=== PATIENT | female | born 1950 | race American Indian/Alaskan Native ===

== ENCOUNTER 2018-05-28 21:46 | Emergency (ER) | payer BC, MEDICARE ==
[2018-05-28 22:02] VITALS: BP 163/84
--- NOTE | 2018-05-28 22:05 | Emergency Department Report ---
Blank Doc - Documentation Documentation: C/O right ankle pain s/p fall 2 weeks ago. This initial assessment diagnostic orders/clinical plan/treatment (s) is/Are subject change based on patient's health status, clinical progression and re- assessment by fellow clinical providers in the ED. Further treatment and work-up at subsequent clinical providers discretion. Patient/guardians urged not to elope from s their condition may be serious if not clinically assessed and managed. Initial order include:
--- NOTE | 2018-05-28 23:48 | XRay Report ---
FINAL REPORT PROCEDURE: XR ANKLE 2V RT TECHNIQUE: Right ankle radiographs, AP and lateral views. CPT 26670 HISTORY: ankle pain s/p fall. COMPARISON: No prior studies are available for comparison. FINDINGS: Fracture (s) and/or Dislocation(s): None . Alignment: Normal . Joint space(s): Normal . Soft tissues: Normal . Bone mineralization: Normal . Foreign bodies: None . Calcaneal spurring: None . IMPRESSION: Normal Examination .
--- NOTE | 2018-05-29 00:33 | Emergency Department Report ---
ED General Adult HPI - General Chief complaint: Extremity Injury, Lower Stated complaint: ANKLE INJURY Time Seen by Provider: 05/28/18 22:03 Source: patient Mode of arrival: Ambulatory Limitations: No Limitations - History of Present Illness Initial comments: A 68-year-old -[place] female had a fall down 4 stairs 2 weeks ago and injured her right ankle, causing a wound which she was treating with alcohol and olive oil. She's had continued redness and some swelling and tenderness to the area has become worried and now wants to area evaluated for further injury or damage. She denies any calf pain, numbness, tingling, swelling. Denies any history of diabetes. She reports no fever, chills, sweats. -: Sudden Location: head, lower extremity Radiation: non-radiation Severity scale (0 -10): 9 Quality: dull Consistency: constant Improves with: none Worsens with: none Associated Symptoms: denies: confusion, chest pain, cough, diaphoresis, fever/chills, loss of appetite, nausea/vomiting, shortness of breath, syncope, weakness - Related Data Previous Rx's Medication Instructions Recorded Last Taken Type Chlorhexidine Mouthwash [Peridex] 15 ml MM BID #473 bottle 05/29/18 Unknown Rx Sulfamethoxazole/Trimethoprim 1 each PO BID #20 tablet 05/29/18 Unknown Rx [Bactrim Ds] Allergies Allergy/AdvReac Type Severity Reaction Status Date / Time No Known Allergies Allergy Unverified 05/28/18 21:48 ED Review of Systems ROS: Stated complaint: ANKLE INJURY Other details as noted in HPI Constitutional: denies: chills, fever Eyes: denies: eye pain, eye discharge, vision change ENT: denies: ear pain, throat pain Respiratory: denies: cough, shortness of breath, wheezing Cardiovascular: denies: chest pain, palpitations Endocrine: no symptoms reported Gastrointestinal: denies: abdominal pain, nausea, diarrhea Genitourinary: denies: urgency, dysuria, discharge Musculoskeletal: denies: back pain, joint swelling, arthralgia Skin: change in color. denies: rash, lesions Neurological: denies: headache, weakness, paresthesias Psychiatric: denies: anxiety, depression Hematological/Lymphatic: denies: easy bleeding, easy bruising ED Past Medical Hx - Past Medical History Hx Hypertension: Yes - Surgical History Past Surgical History?: No - Social History Smoking Status: Never Smoker Substance Use Type: None - Medications Home Medications: Home Medications Medication Instructions Recorded Confirmed Last Taken Type Chlorhexidine Mouthwash [Peridex] 15 ml MM BID #473 bottle 05/29/18 Unknown Rx Sulfamethoxazole/Trimethoprim 1 each PO BID #20 tablet 05/29/18 Unknown Rx [Bactrim Ds] ED Physical Exam - General Limitations: No Limitations General appearance: alert, in no apparent distress - Head Head exam: Present: atraumatic, normocephalic - Eye Eye exam: Present: normal appearance, PERRL - ENT ENT exam: Present: mucous membranes moist - Neck Neck exam: Present: normal inspection - Respiratory Respiratory exam: Present: normal lung sounds bilaterally. Absent: respiratory distress - Cardiovascular Cardiovascular Exam: Present: regular rate, normal rhythm. Absent: systolic murmur, diastolic murmur, rubs, gallop - GI/Abdominal GI/Abdominal exam: Present: soft, normal bowel sounds - Extremities Exam Extremities exam: Present: normal inspection, full ROM, tenderness, normal capillary refill, joint swelling. Absent: pedal edema, calf tenderness - Expanded Lower Extremity Exam Right Upper Leg exam: Present: normal inspection, full ROM Knee exam: Present: normal inspection, full ROM Ankle exam: Present: tenderness, erythema. Absent: ecchymosis, deformity, anterior draw sign Neuro vascular tendon exam: Present: no vascular compromise 1 - A healing sore to the lateral malleoli region with some surrounding cellulitis and small area of pus noted. Pulses 2+ dorsalis pedis, posterior tibialis. Capillary refills are brisk. No lymphangitis is noted. - Back Exam Back exam: Present: normal inspection - Neurological Exam Neurological exam: Present: alert, oriented X3 - Psychiatric Psychiatric exam: Present: normal affect, normal mood - Skin Skin exam: Present: warm, dry, intact, normal color. Absent: rash ED Course Vital Signs 05/28/18 21:59 Temperature 98.6 F Pulse Rate 83 Respiratory 14 Rate Blood Pressure 163/84 O2 Sat by Pulse 96 Oximetry Critical care attestation.: If time is entered above; I have spent that time in minutes in the direct care of this critically ill patient, excluding procedure time. ED Disposition Clinical Impression: Wound of foot Disposition: DC-01 TO HOME OR SELFCARE Is pt being admited?: No Does the pt Need Aspirin: No Condition: Stable Instructions: Wound Infection (ED), Methicillin Resistant Staphylococcus Aureus (ED), Acute Wound Care (ED) Referrals: LATONYA GRIDER MD [Primary Care Provider] - 3-5 Days (1. Recheck in 3-5 days)
== END 2018-05-29 00:40 | disposition home or self-care (01) ==
LOC: ED 21:46
DX: S90.911A Unspecified superficial injury of right ankle, initial encounter (principal); I10 Essential (primary) hypertension; W10.9XXA Fall (on) (from) unspecified stairs and steps, initial encounter; Y93.89 Activity, other specified; Y92.89 Other specified places as the place of occurrence of the external cause; Y99.8 Other external cause status
CPT/HCPCS: 99283

== ENCOUNTER 2018-09-26 09:13 | Outpatient (CLI) | payer BC, MEDICARE ==
--- NOTE | 2018-09-26 14:10 | Vascular Lab Report ---
PROCEDURE: VL RENAL VASCULATURE TECHNIQUE: Duplex Doppler ultrasound of renal arteries/kidneys. HISTORY: Acute kidney failure, unspecified COMPARISON: None FINDINGS: Bilateral renal arteries are patent. There is no abnormal elevation of arterial flow velocity. Renal aortic ratios are normal, 1.7 on the right and 1.7 on the left. Right kidney measures 9.2 x 3.2 x 3.6 cm. Left kidney measures 10.0 x 5.0 x 3.5 cm. There is no hydro nephrosis. There is no focal renal mass identified. No calculi seen sonographically. IMPRESSION: There is no significant abnormality identified. There is no Doppler evidence of renal ar alicia stenosis. This document is electronically signed by Afia Pearce MD., September 26 2018 02:08:26 PM ET
== END 2018-09-26 09:14 | disposition home or self-care (01) ==
LOC: VAS 09:13
PROVIDERS: ATTEND Internal Medicine Nephrology
DX: I73.9 Peripheral vascular disease, unspecified (principal); N17.9 Acute kidney failure, unspecified; I10 Essential (primary) hypertension
CPT/HCPCS: 93975